=== PATIENT | female | born 1965 | race Caucasian/White ===

== ENCOUNTER 2022-03-05 13:17 | Emergency (ER) | payer OTHER, SELFPAY ==
--- NOTE | ~2022-03-05 | XR_ITS ---
EXAMINATION: XR finger 5th RT min 2V DATE: 03/05/2022 13:43 INDICATION: Deformity at the right fifth finger TECHNIQUE: Dorsal palmar, lateral and 2 oblique views of the right fifth digit were obtained COMPARISON: None FINDINGS: Mallet finger deformity at the right fifth digit. No fracture. Alignment in the remainder of the visu alized right hand is normal. Joint spaces are normal. Small lucent lesion with thin sclerotic margins at the radial styloid process suggestive of degenerative subarticular cyst. Soft tissues are unremar kable. IMPRESSION: 1. Nonspecific mallet finger deformity of the right finger. No fracture or other acute osseous abnorm ality. Reviewed, dictated and finalized at location B. IMPRESSION: 1. Nonspecific mallet finger deformity of the right finger. No fracture or othe r acute osseous abnormality.
[2022-03-05 13:30] VITALS: BP 162/80; PULSE 58; RESP 20; TEMP 35.2; O2SAT 100
--- NOTE | 2022-03-05 14:17 | ED.UPPEXIN ---
HPI - Extremity Injury (Upper) General Chief Complaint: Extremity Injury, Upper Stated Complaint: pinky on right hand injury Time Seen by Provider: 03/05/22 13:45 Source: patient Mode of arrival: ambulatory Limitations: no limitations History of Present Illness HPI narrative: 57-year-old female presents with complaint of pain to right little finger and decreased range of motion. Reports tip of my finger is stuck down . Patient is not exactly sure when injury happened. 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 Went out to her car and opened door handle and noticed that her pinky looks different. States that she is unable to completely straighten right little finger. Distal neurovascularly intact. All systems reviewed and negative except as noted above. Related Data Home Medications Medication Instructions Recorded Confirmed atenolol 50 mg tablet 50 mg PO DAILY 03/05/22 03/05/22 gabapentin 600 mg tablet 600 mg PO TID 03/05/22 03/05/22 meloxicam 15 mg tablet 15 mg PO DAILY 03/05/22 03/05/22 tramadol 50 mg tablet 50 mg PO PRN PRN Pain, Moderate 03/05/22 03/05/22 zolpidem 10 mg tablet 10 mg PO HS 03/05/22 03/05/22 Allergies Allergy/AdvReac Type Severity Reaction Status Date / Time No Known Drug Allergies Allergy Unknown Verified 03/14/19 13:17 Review of Systems Review of Systems: CONSTITUTIONAL: Denies fever, chills, or sweats. EYES: Denies visual changes, redness, or discharge. ENT: Denies rhinorrhea, congestion, sore throat, or otalgia. CARDIOVASCULAR: Denies chest pain, palpitations, or edema. RESPIRATORY: Denies cough or dyspnea. GASTROINTESTINAL: Denies abdominal pain, nausea, vomiting, or diarrhea. GENITOURINARY: Denies dysuria or hematuria. SKIN: Denies rash or itching. MUSCULOSKELETAL: Denies back pain, joint pain, or myalgia. Reports pain to right little finger. NEUROLOGIC: Denies headache, numbness, or weakness. PSYCHIATRIC: Denies anxiety or depression. All other systems reviewed are negative, except as documented in HPI. [facility] Comments At time of signature, agree with nursing past medical, surgical, social and family history. There is no relevant family history pertinent to the presenting complaint. Exam Narrative: GENERAL: This is a well-nourished, well-developed patient, in no apparent distress. HEAD: normocephalic, atraumatic. EYES: PERRL. Sclera clear/white. Vision is grossly intact. EARS: External ears normal NOSE: External nose normal NECK: Neck supple, non-tender without lymphadenopathy, masses or thyromegaly. CARDIOVASCULAR: Regular rate and rhythm without murmurs, gallops, or rubs. RESPIRATORY: Clear to auscultation. Breath sounds equal bilaterally. No wheezes, rales, or rhonchi. SKIN: warm, Dry, intact with no suspicious lesions or rash, good texture and turgor. NEURO: awake, alert, and oriented to person, place and time. There were no obvious focal neurologic abnormalities. EXTREMITIES: distal aspect R little finger flexed at DIP. unable to complete extend. tender on palpation of R little DIP. no significant swelling noted. distal NV intact. Course Course Level of Care: Express Care Visit Vital Signs Vital signs: Vital Signs Temperature 35.2 C L 03/05/22 13:30 Pulse Rate 58 L 03/05/22 13:30 Respiratory Rate 20 03/05/22 13:30 Blood Pressure 162/80 H 03/05/22 13:30 Pulse Oximetry 100 03/05/22 13:30 Oxygen Delivery Room Air 03/05/22 13:30 Temperature 35.2 C L 03/05/22 13:30 Pulse Rate 58 L 03/05/22 13:30 Respiratory Rate 20 03/05/22 13:30 Blood Pressure 162/80 H 03/05/22 13:30 Pulse Oximetry 100 03/05/22 13:30 Oxygen Delivery Room Air 03/05/22 13:30 Reviewed MDM - Extremity Injury (Upper) MDM Narrative Medical decision making narrative: Discussed x-ray results with patient. She voiced understanding. Finger splint placed by field technician. Referred to orthopedics for follow-up. Patient is awar
== END 2022-03-05 14:19 | disposition home or self-care (01) ==
PROVIDERS: Emergency Provider Nurse Practitioner Family
DX: S66.396A Other injury of extensor muscle, fascia and tendon of right little finger at wrist and hand level, initial encounter (principal); X58.XXXA Exposure to other specified factors, initial encounter; I10 Essential (primary) hypertension; M79.7 Fibromyalgia
CPT/HCPCS: 29130; 73140; 99213; G0463

== ENCOUNTER 2025-08-03 14:19 | Emergency (ER) | payer OTHER, SELFPAY ==
--- OUTSIDE RECORDS SUMMARY | 2025-08-03 14:23 | XMS_ITS | Clinical Summary ---
Author Organization [facility] Address [address] [place] [address] Care Team Providers Care Room Service Food Service Attendant Name Role Phone Boubacar Bond MD Unavailable [phone] Jesus Montiel MD Primary Care Provider [phone] Source Comments [facility],non-owned Affiliates and Associated Physician Practices is amultiple site organization consisting of ambulatory clinics and hospital sitesin [place], [place], [place] and [place]. This disclosure is being madepursuant to the Care Everywhere program and may not contain all information available regarding this patient. Last updated 18.[facility] [employer] Allergies No known active allergies Medications * Be aware that medications may not be up to date on this document. Alwaysverify current medications with the patient. gabapentin (NEURONTIN) 600 MG tablet Take 600 mg by mouth 3 times daily. Active zolpidem (AMBIEN) 10 MG tablet Take 10 mg by mouth nightly as needed. Active neomycin-polymy charly-hc (CORTISPORIN) 3.5-07991-8 otic suspension Instill 4 drops into right ear 4 times daily 10 mL 09/29/2017 Active Active Problems Problem Noted Date Diagnosed Date Fibromyalgia 12/09/2011 Systolic murmur 12/09/2011 Family History Medical History Relation Name Comments Migraine Sister Relation Name Status Comments Sister Social History Tobacco Use Types Packs/Day Years Used Date Smoking Tobacco: Unknown Smokeless Tobacco: Never Alcohol Use Standard Drinks/Week Comments No 0 (1 standard drink = 0.6 oz pur e alcohol) Comments Unknown Sex and Gender Information Value Date Recorded Sex Assigned at Not on file Legal Sex Female 12:43 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 Gender Identity Not on file Sexual Orientation Not on file Occupation Industry Job Start Date Job End Date [employer] Not on file Not on file Not on file Last Filed Vital Signs Vital Sign Reading Time Taken Comments Blood Pressure 130/86 12/09/2011 9:49 AM LICENSED MIDWIFE Pulse 82 12/09/2011 9:49 AM LICENSED MIDWIFE Temperature - - Respiratory Rate - - Oxygen Saturation - - Inhaled Oxygen Concentration - - Weight 117 kg (258 lb) 12/09/2011 9:49 AM LICENSED MIDWIFE Height 162.6 cm (5' 4) 12/09/2011 9:49 AM LICENSED MIDWIFE Body Mass Index 44.29 12/09/2011 9:49 AM LICENSED MIDWIFE Plan of Treatment Health Maintenance Due Date Last Done Comments COLOGUARD (AGES 45-75) - COL ON CA SCREENING 1965 COLON MONITORING 1965 COLONOSCOPY - COLON CA SCREENING 1965 CT COLONOGRAPHY - COLON CA SCREENING 1965 Colorectal Cancer Screening 1965 FIT - COLON CA SCREENING 1965 FLEX SIG - COLON CA SCREENING 1965 LIPID TESTING 1965 MAMMOGRAM 1965 HIV SCREENING 01/22/1980 HEPATITIS C SCREENING 01/17/1983 DTAP/TDAP/TD VACCINES (1 - Tdap) 01/22/1984 PNEUMOCOCCAL VACCINE 50+ (1 of 1 - PCV) 2015 ZOSTER VACCINE (1 of 2) 2015 DEPRESSION SCREENING 10/03/2024 COVID-19 VACCINE (1 - 2023-2 5 season) 2025 INFLUENZA VACCINE (#1) 2025 08/06/2015 Respiratory Syncytial Virus (RSV) Vaccine Pt: or over 60 yrs (1 - 1-dose 75+ series) 01/22/2040 HEPATITIS B VACCINE Aged Out No longe r eligible based on patient's age to complete this topic HIB VACCINE Aged Out No longer eligi ble based on patient's age to complete this topic HPV VACCINE Aged Out No longer eligi ble based on patient's age to complete this topic MENINGOCOCCAL (Group B) VACC INE SHARED DECISION-MAKING Aged Out No longer eligibl e based on patient's age to complete this topic MENINGOCOCCAL GROUPS A/C/Y/W VACCINE Aged Out No longer eligible b ased on patient's age to complete this topic Insurance [facility] Care Teams Room Service Food Service Attendant Relationship Specialty Start Date End Date Jesus Montiel MD [address] [place] [id number] PCP - General Internal Medicine 09/29/17 Boubacar Bond MD Neurology 08/18/11
[2025-08-03 14:24] VITALS: BP 187/80; PULSE 63; RESP 20; TEMP 36.6; O2SAT 100
--- NOTE | 2025-08-03 14:32 | ED.EAR ---
HPI - Ear Problem General Chief complaint: Ear Stated complaint: ears patient presents to the [facility] accompanied by spouse with complaints of right ear pain, drainage, swelling that began about 3 weeks ago. Patient reports. Getting slightly this week the ear was swollen shut. Patient believes she may have a swimmer's ear infection. Noted she has had a many ear infections in the past. Does also report minimal nasal drainage. Denies Fever, chills, body aches, headache, dizziness, sinus pain, sore throat, nausea, vomiting, diarrhea. Related Data Home Medications ?Medication ?Instructions ?Recorded ?Confirmed ?Last Taken ?Type atenolol 50 mg tablet 50 mg PO DAILY 03/05/22 03/05/22 Unknown History gabapentin 600 mg tablet 600 mg PO TID 03/05/22 03/05/22 Unknown History meloxicam 15 mg tablet 15 mg PO DAILY 03/05/22 03/05/22 Unknown History tramadol 50 mg tablet 50 mg PO PRN PRN Pain, Moderate 03/05/22 03/05/22 Unknown History zolpidem 10 mg tablet 10 mg PO HS 03/05/22 03/05/22 Unknown History budesonide 3 mg mg PO 08/03/25 Unknown History capsule,delayed,extended release esomeprazole magnesium 40 mg mg 08/03/25 Unknown History capsule,delayed release pregabalin 200 mg capsule mg 08/03/25 Unknown History Allergies Allergy/AdvReac Type Severity Reaction Status Date / Time No Known Drug Allergies Allergy Unknown Verified 03/14/19 13:17 Review of Systems Constitutional: Constitutional: Reports as per HPI, Denies chills, Denies fatigue and Denies fever(s) Eyes: Eyes: Reports no additional eye complaints ENT: Reports as per HPI, Denies vertigo, Denies dizziness, Denies nasal congestion and Denies sore throat Comments: minimal nasal drainage, right ear pain, right ear swelling Cardiovascular: Cardiovascular: Reports no additional cardiovascular complaints Respiratory: Respiratory: Reports no additional respiratory complaints Gastrointestinal: Gastrointestinal: Reports no additional gastrointestinal complaints Genitourinary: Genitourinary: Reports no additional female genitourinary complaints Musculoskeletal: Musculoskeletal: Reports as per HPI, Denies back pain and Denies myalgias Integumentary/Breasts: Skin/Breast: Reports as per HPI, Denies erythema, Denies rash and Denies skin ulcer Neurologic: Reports as per HPI, Denies vertigo, Denies dizziness, Denies headache(s) and Denies weakness Psychiatric: Psychiatric: Reports no additional psychiatric complaints Endocrine: Endocrine: Reports no additional endocrine complaints Hematologic/Lymphatic: Hematologic/Lymphatic: Reports no additional hematologic/lymphatic complaints Allergic/Immunologic: Allergic/Immunologic: Reports no additional allergic/immunologic complaints Exam Const: General: healthy appearing and no acute distress Nutritional Appearance: well nourished Orientation/consciousness: patient oriented x3 Limitations: no limitations HENMT: Head: normal to inspection Ears: external ears abnormal ( pain with movement right ear) and TM's normal bilaterally Face/Nose/Sinus: Normal external nose present and Normal nares present Face and sinus: normal facial exam and sinuses nontender Mouth: Yes Normal oral and palatal mucosa present, Yes lip normal and Yes moist mucous membranes Throat: posterior oropharynx normal Other: moderate erythema, edema, and purulence drainage right ear. left ear normal Neck: Neck: normal visual inspection and no lymphadenopathy Resp: Effort & Inspection: normal respiratory effort Auscultation: clear to auscultation bilaterally Cardio: Rate: regular rate Rhythm: regular rhythm Skin: General skin exam: normal color Rashes: no rashes Wounds: no wounds Neuro: General: patient oriented x3 Speech: normal speech Gait exam (Neuro): Normal gait present Psych: Mental Status: mental status grossly normal Affect: normal affect Attitude: cooperative Course Course Level of Care: Express Care Visit Vital Signs Vital signs: Vital Signs Temperature 97.8 F 08/03/25 14:24 Pulse Rate 63 08/03/25 14:24 Respiratory Rate 20 08/03/25 14:24 Blood Pressure 187/80 H 08/03/25 14:24 Pulse Oximetry 100 08/03/25 14:24 Oxygen Delivery Room Air 08/03/25 14:24 Temperature 97.8 F 08/03/25 14:24 Pulse Rate 63 08/03/25 14:24 Respiratory Rate 20 08/03/25 14:24 Blood Pressure 187/80 H 08/03/25 14:24 Pulse Oximetry 100 08/03/25 14:24 Oxygen Delivery Room Air 08/03/25 14:24 Medical Decision Making MDM Narrative Medical decision making narrative: The patient was evaluated by myself in the express care. History is obtained from patient who is an independent historian and physical exam was performed. Available medical records were reviewed at this time. Exam findings show no acute concerns or changes; patient is non-toxic appearing and is in no distress. Patient is appropriate for outpatient treatment and follow-up. I have evaluated and discussed social determinants of health with the patient that could potentially impact subsequent diagnosis and treatment plans. Differential diagnosis and treatment plan were discussed with the patient. Patient agrees with discussion and after shared medical decision making agrees with plan of care. All questions were answered to the patient's satisfaction. Differential Diagnosis Differential Diagnosis: otitis media, otitis externa, seasonal allergies, sinusitis Medical Records Medical records reviewed: Yes I reviewed the external patient's medical records. Vital Signs Vital Signs: Vital Signs Temperature 97.8 F 08/03/25 14:24 Pulse Rate 63 08/03/25 14:24 Respiratory Rate 20 08/03/25 14:24 Blood Pressure 187/80 H 08/03/25 14:24 Pulse Oximetry 100 08/03/25 14:24 Oxygen Delivery Room Air 08/03/25 14:24 Temperature 97.8 F 08/03/25 14:24 Pulse Rate 63 08/03/25 14:24 Respiratory Rate 20 08/03/25 14:24 Blood Pressure 187/80 H 08/03/25 14:24 Pulse Oximetry 100 08/03/25 14:24 Oxygen Delivery Room Air 08/03/25 14:24 Discharge Plan Discharge Clinical Impression: Diffuse otitis externa, right ear, Elevated blood pressure reading Patient Disposition: Home Condition: Stable Instructions: Antibiotic Form, Swimmer's Ear (ED) Additional Instructions: Please schedule a follow up visit with your personal physician for further evaluation and treatment within 3-5 days. Including recheck and discussion of your blood pressure. If your symptoms persist, change or worsen significantly before you can contact your personal physician then please, without delay, go to the emergency department for further evaluation. Your blood pressure was elevated above 120/80 today at Urgent Care. This puts you above the threshold for follow up visit with a primary care provider. High blood pressure does not usually cause any symptoms, however it may lead to kidney failure, stroke, heart disease just to name a few if untreated . Many people are anxious when seeing a provider or nurse. As a result, you are not diagnosed with hypertension at this time unless your blood pressure is persistently high at two office visits at least one week apart; therefore it is very important that you follow up with a primary care doctor for further evaluation. -Ear drops as directed for 7-10 days until the pain and swelling are gone. -When administer drug into the affected ear; make sure to ly down with the affected ear facing upward, message the ear canal to help the drops reach the medial end of the canal, then remain in that position for at least 5 mintues. -Avoid using cotton tipped applicator for ears cleaning -Avoid exposing swimming or exposing the affected ear to water during the treatment period Take or alternate tylenol or ibuprofen every 4 - 6 hours if needed for pain. Follow up with primary care provider if condition is not improving in 7 days or sooner if there is new concern. Patient Language: Andorran Prescriptions: New ciprofloxacin-dexamethasone 0.3-0.1 % drops,suspension 4 drp RIGHT EAR Q12H 7 Days Qty: 7.5 0RF No Action esomeprazole magnesium 40 mg capsule,delayed release(DR/EC) budesonide 3 mg capsule,delayed,extend.release PO pregabalin 200 mg capsule gabapentin 600 mg tablet 600 mg PO TID meloxicam 15 mg tablet 15 mg PO DAILY tramadol 50 mg tablet 50 mg PO PRN PRN (Reason: Pain, Moderate) zolpidem 10 mg tablet 10 mg PO HS atenolol 50 mg tablet 50 mg PO DAILY Follow-up/Referrals: Harms,Jesus Titus M.D. [Primary Care Provider] Time of Disposition: 14:34
== END 2025-08-03 14:35 | disposition home or self-care (01) ==
PROVIDERS: Emergency Provider Nurse Practitioner Family; PCP Family Medicine
DX: H60.91 Unspecified otitis externa, right ear (principal); I10 Essential (primary) hypertension
CPT/HCPCS: 99213; G0463